=== PATIENT | male | born 1980 | race Caucasian/White ===

== ENCOUNTER 2020-08-28 13:02 | Emergency (ER) | payer BC ==
[~2020-08-28] VITALS: Ht 198.1 cm; Wt 98.9 kg
[2020-08-28 13:07] VITALS: BP 121/78
[2020-08-28] MEDS ORDERED: KETOROLAC 30 MG/ML VIAL IM ONE (14:00)
[2020-08-28 14:57] VITALS: BP 121/78
== END 2020-08-28 14:57 | disposition home or self-care (01) ==
LOC: MED 13:02
DX: S90.32XA Contusion of left foot, initial encounter (principal); W22.8XXA Striking against or struck by other objects, initial encounter; Y93.89 Activity, other specified; Y92.89 Other specified places as the place of occurrence of the external cause; Y99.8 Other external cause status
CPT/HCPCS: 73630; 99283; J1885